=== PATIENT | female | born 1980 | race Caucasian/White ===

== ENCOUNTER 2021-01-31 14:23 | Emergency (ER) | payer OTHER ==
[2021-01-31 14:41] VITALS: BP 95/66; PULSE 81; TEMP 98.8; BMI 35.9
[2021-01-31] MEDS ORDERED: IBUPROFEN 600 MG TABLET (FP) PO ONE ×2 (17:14→17:17)
== END 2021-01-31 17:25 | disposition home or self-care (01) ==
LOC: JERFT 14:23
DX: S46.912A Strain of unspecified muscle, fascia and tendon at shoulder and upper arm level, left arm, initial encounter (principal)
CPT/HCPCS: 73090-TC-LT-FY; 73110-TC-LT-FY; 73130-TC-LT-FY; 99284-25

== ENCOUNTER 2024-02-18 04:19 | Observation (INO) | payer OTHER ==
[2024-02-18] MEDS ORDERED: MIDAZOLAM HCL 2 MG/2 ML SINGLE DOSE VIAL ONE (11:30)
[2024-02-18] MEDS ORDERED: PROPOFOL 20 ML ONE ×4 (11:38→12:27)
[2024-02-18] MEDS ORDERED: HYDROmorphone HCl 2 MG/ML VIAL ONE (12:01)
[2024-02-18] MEDS: ceFAZolin SODIUM 1 GM VIAL IVPB ONE (12:11)
[2024-02-18] MEDS: BUPIVACAINE HCL/PF 0.5% (5 MG/ML) 30 ML VIAL IJ ONE ×2 (12:16)
[2024-02-18] MEDS: LIDOCAINE 1%/EPI 1:100000 (20 ML MULTI DOSE VIAL) IJ ONE ×2 (12:16)
[2024-02-18] MEDS: MICROFIBRILLAR COLLAGEN 1 GM EACH TP ONE (12:43)
[2024-02-18] MEDS ORDERED: SUGAMMADEX SODIUM 200 MG/2 ML VIAL ONE (13:15)
[2024-02-18] MEDS ORDERED: ACETAMINOPHEN INJECTION 100 ML ONE (15:33)
[2024-02-18] MEDS: ACETAMINOPHEN 1000 MG/100 ML BAG IVPB SCH (15:45)
[2024-02-18] MEDS ORDERED: ONDANSETRON 4 MG/2 ML VIAL IVPUSH PRN (15:56)
[2024-02-18] MEDS ORDERED: IBUPROFEN 800 MG/8 ML IJ IVPB ONE ×2 (18:44→18:59)
[2024-02-18] MEDS: IBUPROFEN 800 MG/8 ML IJ IVPB SCH (18:57)
[2024-02-18] MEDS ORDERED: QUEtiapine FUMARATE 25 MG TABLET PO PRN (19:21)
[2024-02-18] MEDS: SODIUM CHLORIDE 1,000 ML IV SCH (21:30)
[2024-02-18] MEDS: FAMOTIDINE 20 MG TABLET PO SCH (23:00)
[2024-02-19] MEDS: LACTATED RINGERS SOLUTION 1,000 ML IV SCH (00:15)
[2024-02-19 11:20] LABS: BASO % 0.1 % (0-2.0); HEMATOCRIT 38.6 % (32.4-45.2); HEMOGLOBIN 12.7 GM/dL (10.7-15.3); LYMPH % 13.4 % (8-40); MCH 27.4 pg (25.7-33.7); MCHC 32.8 g/dl (32.0-36.0); MEAN CELL VOLUME 83.6 fl (80-96); MEAN PLT VOLUME 10.9 fl (7.5-11.1); MONO % 5.8 % (3.8-10.2); NEUT % 80.7 % (42.8-82.8); PLATELET COUNT 222 10^3/uL (134-434); RBC 4.61 M/mm3 (3.60-5.2); RDW 15.3 % (11.6-15.6); WHITE BLOOD COUNT 7.6 K/mm3 (4.0-10.0)
[2024-02-19] MEDS: SERTRALINE HCL 50 MG TABLET (FP) PO SCH (11:23)
[2024-02-19 11:37] LABS: POTASSIUM 4.4 mmol/L (3.5-5.1)
[2024-02-19 11:38] LABS: CALCIUM 9.3 mg/dL (8.5-10.1)
[2024-02-19 11:39] LABS: ALBUMIN 3.2 g/dl (3.4-5.0); BLOOD UREA NITROGEN 14.1 mg/dL (7-18); MAGNESIUM 2.2 mg/dL (1.8-2.4)
[2024-02-19 11:42] LABS: CREATININE 0.5 mg/dL (0.55-1.3); PHOSPHOROUS 2.2 mg/dL (2.5-4.9)
[2024-02-19 11:43] LABS: BILIRUBIN,TOTAL 0.9 mg/dL (0.2-1); TOT PROT 6.6 g/dl (6.4-8.2)
[2024-02-20] MEDS: IBUPROFEN 100 MG/5 ML UNIT DOSE CUPS PO ONE (06:34)
[2024-02-20] MEDS ORDERED: ALBUTEROL SO4 2.5/IPRATROPIUM 0.5 INH SOL 3 ML VIAL.NEB. NEB PRN (08:06)
[2024-02-20 08:47] LABS: HEMATOCRIT 35.3 % (32.4-45.2); HEMOGLOBIN 11.3 GM/dL (10.7-15.3); MCH 27.2 pg (25.7-33.7); MEAN CELL VOLUME 84.9 fl (80-96); MEAN PLT VOLUME 11.1 fl (7.5-11.1); PLATELET COUNT 182 10^3/uL (134-434); RBC 4.16 M/mm3 (3.60-5.2); RDW 15.2 % (11.6-15.6); WHITE BLOOD COUNT 5.5 K/mm3 (4.0-10.0)
[2024-02-20 09:08] LABS: POTASSIUM 4.3 mmol/L (3.5-5.1)
[2024-02-20 09:20] LABS: CALCIUM 8.6 mg/dL (8.5-10.1)
[2024-02-20 09:21] LABS: BLOOD UREA NITROGEN 12.1 mg/dL (7-18); MAGNESIUM 2.3 mg/dL (1.8-2.4)
[2024-02-20 09:24] LABS: CREATININE 0.4 mg/dL (0.55-1.3); PHOSPHOROUS 2.2 mg/dL (2.5-4.9)
[2024-02-20 09:25] LABS: BILIRUBIN,TOTAL 0.8 mg/dL (0.2-1); TOT PROT 6.2 g/dl (6.4-8.2)
[2024-02-20] MEDS: IBUPROFEN 400 MG TABLET (FP) PO PRN (13:36)
[2024-02-20 19:02] VITALS: BMI 36.1
[2024-02-21 03:32] VITALS: RESP 18
[2024-02-21 08:22] LABS: HEMATOCRIT 36.5 % (32.4-45.2); HEMOGLOBIN 11.4 GM/dL (10.7-15.3); MCH 26.6 pg (25.7-33.7); MCHC 31.4 g/dl (32.0-36.0); MEAN CELL VOLUME 84.7 fl (80-96); MEAN PLT VOLUME 10.8 fl (7.5-11.1); PLATELET COUNT 173 10^3/uL (134-434); RDW 15.4 % (11.6-15.6); WHITE BLOOD COUNT 5.9 K/mm3 (4.0-10.0)
[2024-02-21 10:01] VITALS: BP 110/80; PULSE 62; TEMP 97.8
[2024-02-21 10:18] LABS: ALBUMIN 3.1 g/dl (3.4-5.0); BLOOD UREA NITROGEN 11.2 mg/dL (7-18); CALCIUM 8.6 mg/dL (8.5-10.1); MAGNESIUM 2.3 mg/dL (1.8-2.4)
[2024-02-21 10:21] LABS: CREATININE 0.4 mg/dL (0.55-1.3); PHOSPHOROUS 2.2 mg/dL (2.5-4.9)
[2024-02-21 10:23] LABS: TOT PROT 6.2 g/dl (6.4-8.2)
== END 2024-02-21 14:16 | disposition home or self-care (01) ==
LOC: SUATTDRO 04:19 → JASUSAT 04:19 → EDSTATUS 12:00 → J4W 21:18 → JASUSAT 21:18 → J4W 02-19 14:43
PROVIDERS: ADMIT Internal Medicine; ATTEND Internal Medicine
PROC: 0GBJ0ZZ Excision of Thyroid Gland Isthmus, Open Approach (ICD-10-PCS; principal; 2024-02-19)
PROC: 3E033NZ Introduction of Analgesics, Hypnotics, Sedatives into Peripheral Vein, Percutaneous Approach (ICD-10-PCS; 2024-02-19)
PROC: 3E0337Z Introduction of Electrolytic and Water Balance Substance into Peripheral Vein, Percutaneous Approach (ICD-10-PCS; 2024-02-19)
DX: J95.89 Other postprocedural complications and disorders of respiratory system, not elsewhere classified (principal); E04.2 Nontoxic multinodular goiter; G71.11 Myotonic muscular dystrophy; F41.8 Other specified anxiety disorders; K21.9 Gastro-esophageal reflux disease without esophagitis; Z88.5 Allergy status to narcotic agent
CPT/HCPCS: 0241U-QW; 36415; 71046-TC-FY; 71250-TC; 80053; 81025; 83735; 84100; 84439; 84443; 84481; 85025; 85027; 94002; 94660; 94760; 94761; 96361; 96374; G0378; J0131